=== PATIENT | male | born 1965 | race Caucasian/White ===

== ENCOUNTER 2022-03-07 16:42 | Emergency (ER) | payer BC, SELFPAY ==
[2022-03-07 16:59] VITALS: BP 117/75; PULSE 68; RESP 16; TEMP 36.9; O2SAT 97
[2022-03-07 17:00] VITALS: BP 117/75; PULSE 68; RESP 16; TEMP 36.9; O2SAT 97
--- NOTE | 2022-03-07 17:41 | ED.WOUNDLAC ---
HPI - Wound/Laceration General Chief Complaint: Wound/Laceration Stated Complaint: Right Thumb Laceration Time Seen by Provider: 03/07/22 17:05 Source: patient Mode of arrival: ambulatory Limitations: no limitations History of Present Illness HPI narrative: Mr. Pang is a 56-year-old male patient presenting to the clinic today with complaints of a laceration to his right hand/wrist. He reports that this occurred approximately 1 hour ago. His tetanus shot is up-to-date. Bleeding is controlled. He reports he was moving a piece of glass when it was dropped and broke and sliced through the palmar aspect of his hand/wrist Related Data Home Medications Medication Instructions Recorded Confirmed sildenafil 50 mg tablet 50 mg PO PRN 03/07/22 03/07/22 Allergies Allergy/AdvReac Type Severity Reaction Status Date / Time No Known Allergies Allergy Verified 03/07/22 16:59 Review of Systems Review of Systems: Pertinent positives per HPI. Patient denies any fever, chills, rash, headache, visual changes, dizziness, cough, runny nose, sore throat, shortness of breath, chest pain, palpitations, nausea, vomiting, diarrhea, constipation, abdominal pain, or any urinary issues. PMFSH Comments At the time of my signature, I reviewed and agree with the nursing past medical, surgical, social, and family history. There is no relevant family history pertinent to the patient complaint. Exam Narrative: General: Well-developed, well nourished, in no apparent distress Head: Normocephalic, atraumatic. Cardio: Regular rate and rhythm, s1 and s2 normal, no murmur appreciated. Resp: Clear to auscultation bilaterally, no rhonchi, rales, wheezing or rubs. Integumentary: [place], warm, and dry, gaping 2 cm laceration that is jagged to the right palmar hand/wrist over the radius-bleeding controlled Course Course Emergency Course: Portions of this record may have been created with voice recognition software. Level of Care: Express Care Visit Vital Signs Vital signs: Vital Signs Temperature 36.9 C 03/07/22 16:59 Pulse Rate 68 03/07/22 16:59 Respiratory Rate 16 03/07/22 16:59 Blood Pressure 117/75 03/07/22 16:59 Pulse Oximetry 97 03/07/22 16:59 Oxygen Delivery Room Air 03/07/22 16:59 Temperature 36.9 C 03/07/22 17:00 Pulse Rate 68 03/07/22 17:00 Respiratory Rate 16 03/07/22 17:00 Blood Pressure 117/75 03/07/22 17:00 Pulse Oximetry 97 03/07/22 17:00 Oxygen Delivery Room Air 03/07/22 17:00 Vital signs reviewed Procedures Laceration Laceration 1: Date: 03/07/22 Site: hand (wrist) Side (If applicable): right Size (cm): 5 Description: linear and irregular Depth: simple, single layer Local Anesthetic: lidocaine 1% and with epi Amount of anesthesia used (mL): 8 Pre-repair: wound explored, irrigated and irrigated extensively ====== Skin Level ====== Skin layer closed with: nylon Size (cm): 4-0 Number of sutures: 8 Technique: simple, interrupted ====== Subcutaneous Layer ====== ====== Muscle Layer ====== ====== Tendon Layer ====== Dressing: Verbal consent obtained for laceration repair. Risk and benefits explained and patient voiced understanding. Area was cleansed with Betadine and a 25 gauge needle was then used to instill (8) ml of 1% lidocaine with epi into the wound edges. Area was prepped and draped using sterile technique. A 4-0 suture on a p needle was used to place (8) interrupted sutures bringing the wound edges together- well approximated. Patient tolerated procedure well. Sterile dressing applied. MDM - Wound/Laceration MDM Narrative Medical decision making narrative: At the time of visit patient is resting comfortably on the exam table. Patient has a 5 cm laceration that is jagged to the right wrist and palmar aspect of the hand. Laceration repair performed and wound
== END 2022-03-07 17:47 | disposition home or self-care (01) ==
PROVIDERS: Emergency Provider Nurse Practitioner Family
DX: S61.411A Laceration without foreign body of right hand, initial encounter (principal); W25.XXXA Contact with sharp glass, initial encounter
CPT/HCPCS: 12002; 99202; G0463